=== PATIENT | female | born 1995 | race Caucasian/White ===

== ENCOUNTER 2020-08-09 06:16 | Inpatient (IN) | payer OTHER ==
[~2020-08-09] VITALS: Ht 162.6 cm; Wt 63.5 kg
[2020-08-09] MEDS ORDERED: PRENA1 TRUE CO1 EACH (06:21)
== END 2020-08-10 01:40 | disposition home or self-care (01) | DRG 806 ==
LOC: ER 06:16 → SEC-K 09:56 → OB/GYN 23:48
PROVIDERS: ADMIT Obstetrics & Gynecology; ATTEND Obstetrics & Gynecology
PROC: 10D07Z6 Extraction of Products of Conception, Vacuum, Via Natural or Artificial Opening (ICD-10-PCS; principal; 2020-08-09 18:00)
DX: O02.0 Blighted ovum and nonhydatidiform mole (principal); O08.89 Other complications following an ectopic and molar pregnancy; Z37.9 Outcome of delivery, unspecified; Z3A.10 10 weeks gestation of pregnancy